=== PATIENT | male | born 2000 | race Caucasian/White ===

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

== ENCOUNTER 2020-08-15 11:48 | Emergency (ER) | payer OTHER ==
[2020-08-15 11:52] VITALS: TEMP 97.9
--- NOTE | 2020-08-15 12:11 | ED ---
General Adult HPI - General Chief complaint: Abdominal Pain Stated complaint: R Side Pain Time Seen by Provider: 08/15/20 12:01 Source: patient Mode of arrival: ambulatory Limitations: no limitations - History of Present Illness Initial comments: Dictation was produced using [employer] dictation software. please excuse any grammatical, word or spelling errors. This patient was cared for during a federal and state declared state of [facility] secondary to Covid 19 Chief Complaint: 19-year-old male with no significant past medical history presents with right-sided flank pain History of Present Illness: Is a 89-year-old male he woke up this morning with right-sided flank pain. Patient states that sharp and constant and located to his right flank right CVA area. Patient states it's sharp and severe periods worse with deep inspiration, coughing and bending. Patient has a history of kidney stones. Patient has not had a bladder movement yet today. He is unsure if he notices any abnormal urinary characteristics. No nausea vomiting or diarrhea. The ROS documented in this emergency department record has been reviewed and confirmed by me. Those systems with pertinent positive or negative responses have been documented in the HPI. All other systems are other negative and/or noncontributory. PHYSICAL EXAM: General Impression: Alert and oriented x3, mild distress secondary to pain HEENT: Normocephalic atraumatic, extra-ocular movements intact, pupils equal and reactive to light bilaterally, mucous membranes moist. Cardiovascular: Heart regular rate and rhythm Chest: Able to complete full sentences, no retractions, no tachypnea Abdomen: abdomen soft, non-tender, non-distended, no organomegaly Musculoskeletal: Pulses present and equal in all extremities, no peripheral edema Motor: no focal deficits noted Neurological: CN II-XII grossly intact, no focal motor or sensory deficits noted Skin: Intact with no visualized rashes Psych: Normal affect and mood ED course: 19-year-old male presents with chief complaint of right-sided flank pain upon waking up this morning. She symptoms seemed to be very musculoskeletal in nature. He does not have any abdominal tenderness or GI symptoms. Patient has stable vital signs. He denies any dyspnea. He is not tachycardic. He does have a component of pleurisy. Very unlikely clinically to be kidney stone versus pulmonary embolus Laboratory evaluation obtained. Mild leukocytosis of 11.1. Metabolic panel is unremarkable. Urinalysis shows 8 red blood cells and 6 white blood cells. Abdominal x-ray chest x-ray shows also a right-sided abdom and no acute processes seen on chest x-ray. En. Computed tomography scan of the abdomen and pelvis was obtained showing a 3 mm calculus within the distal right ureter with mild obstructive uropathy. Clinic al presentation consistent with kidney stones. Patient evaluated bedside found to be stable medical condition. Patient told to hydrate well. He is given outpatient follow-up with urology. - Related Data Home Medications Medication Instructions Recorded Confirmed Albuterol Nebulized [Ventolin 2.5 mg INHALATION RT-Q4H PRN 10/03/16 12/18/16 Nebulized] Beclomethasone Dipropionate [Qvar 1 puff INHALATION RT-BID 10/03/16 12/18/16 40 mcg] Dextroamphetamine/Amphetamine 20 mg PO BID 10/03/16 12/18/16 [Adderall] Loratadine [Claritin] 10 mg PO DAILY 10/03/16 12/18/16 Previous Rx's Medication Instructions Recorded Ibuprofen [Motrin] 600 mg PO Q6HR PRN #20 tab 12/18/16 Ketorolac [Toradol] 10 mg PO Q6HR PRN #12 tab 08/15/20 Allergies Allergy/AdvReac Type Severity Reaction Status Date / Time No Known Allergies Allergy Verified 08/15/20 11:52 Review of Systems ROS Statement: Those systems with pertinent positive or pertinent negative responses have been documented in the HPI. ROS Other: All systems not noted in ROS Statement are negative. Past Medical History Past Medical History: Asthma History of Any Multi-Drug Resistant Organisms: None Reported Past Surgical History: No Surgical Hx Reported Past Psychological History: ADD/ADHD Smoking Status: Current every day smoker Past Alcohol Use History: None Reported Past Drug Use History: Marijuana General Exam Limitations: no limitations Course Vital Signs 08/15/20 11:49 Temperature 97.9 F Pulse Rate 71 Respiratory 20 Rate Blood Pressure 157/84 O2 Sat by Pulse 99 Oximetry Medical Decision Making - Lab Data Result diagrams: 08/15/20 12:33 08/15/20 12:33 Lab Results 08/15/20 08/15/20 08/15/20 Range/Units 12:33 12:33 12:33 WBC 11.1 H (4.0-11.0) k/uL RBC 5.06 (4.30-5.90) m/uL Hgb 16.5 (13.0-17.5) gm/dL Hct 49.0 (39.0-53.0) % MCV 96.8 (80.0-100.0) fL MCH 32.5 (25.0-35.0) pg MCHC 33.6 (31.0-37.0) g/dL RDW 13.0 (11.5-15.5) % Plt Count 368 (150-450) k/uL MPV 6.7 Neutrophils % 66 % Lymphocytes % 24 % Monocytes % 6 % Eosinophils % 2 % Basophils % 1 % Neutrophils # 7.3 (1.3-7.7) k/uL Lymphocytes # 2.7 (1.0-4.8) k/uL Monocytes # 0.6 (0-1.0) k/uL Eosinophils # 0.2 (0-0.7) k/uL Basophils # 0.1 (0-0.2) k/uL Sodium 139 (137-145) mmol/L Potassium 4.3 (3.5-5.1) mmol/L Chloride 107 (98-107) mmol/L Carbon Dioxide 24 (22-30) mmol/L Anion Gap 8 mmol/L BUN 11 (9-20) mg/dL Creatinine 1.04 (0.66-1.25) mg/dL Est GFR (CKD-EPI)AfAm >90 (>60 ml/min/1.73 sqM) Est GFR (CKD-EPI)NonAf >90 (>60 ml/min/1.73 sqM) Glucose 119 H (74-99) mg/dL Calcium 9.8 (8.4-10.2) mg/dL Total Bilirubin 0.7 (0.2-1.3) mg/dL AST 22 (17-59) U/L ALT 30 (4-49) U/L Alkaline Phosphatase 96 (38-126) U/L Total Protein 7.6 (6.3-8.2) g/dL Albumin 4.6 (3.5-5.0) g/dL Lipase 47 (23-300) U/L Urine Color Yellow Urine Appearance Clear (Clear) Urine pH 5.5 (5.0-8.0) Ur Specific [place] 1.025 (1.001-1.035) Urine Protein Trace H (Negative) Urine Glucose (UA) Negative (Negative) Urine Ketones Negative (Negative) Urine Blood Small H (Negative) Urine Nitrite Negative (Negative) Urine Bilirubin Negative (Negative) Urine Urobilinogen <2.0 (<2.0) mg/dL Ur Leukocyte Esterase Small H (Negative) Urine RBC 8 H (0-5) /hpf Urine WBC 6 H (0-5) /hpf Ur Squamous Epith Cells <1 (0-4) /hpf Urine Mucus Few H (None) /hpf Disposition Clinical Impression: Kidney stone Disposition: HOME SELF-CARE Condition: Good Instructions (If sedation given, give patient instructions): Kidney Stones (ED) Prescriptions: Ketorolac [Toradol] 10 mg PO Q6HR PRN #12 tab PRN Reason: Pain Is patient prescribed a controlled substance at d/c from ED?: No Referrals: Carlos Land MD [STAFF PHYSICIAN] - 1-2 days Time of Disposition: 13:51
[2020-08-15] MEDS ORDERED: KETOROLAC 15 MG/ML 1 ML VIAL IVP STA (12:39)
[2020-08-15] MEDS ORDERED: LIDOCAINE 5% PATCH TOPICAL STA (12:39)
[2020-08-15 12:48] LABS: Basophils # (A) 0.1 k/uL (0-0.2); Basophils % (A) 1 %; Eosinophils # (A) 0.2 k/uL (0-0.7); Eosinophils % (A) 2 %; HGB 16.5 gm/dL (13.0-17.5); Lymphocytes # (A) 2.7 k/uL (1.0-4.8); Lymphocytes % (A) 24 %; MCH 32.5 pg (25.0-35.0); MCHC 33.6 g/dL (31.0-37.0); MCV 96.8 fL (80.0-100.0); Mean Platelet Volume 6.7; Monocytes # (A) 0.6 k/uL (0-1.0); Monocytes % (A) 6 %; Neutrophils # (A) 7.3 k/uL (1.3-7.7); Neutrophils % (A) 66 %; Platelet Count 368 k/uL (150-450); RBC 5.06 m/uL (4.30-5.90); WBC 11.1 k/uL (4.0-11.0)
[2020-08-15 12:55] LABS: ALT 30 U/L (4-49); AST 22 U/L (17-59); African American GFR (CKD) >90 (>60 ml/min/1.73 sqM); Albumin 4.6 g/dL (3.5-5.0); Alkaline Phosphatase 96 U/L (38-126); Anion Gap 8 mmol/L; Blood Urea Nitrogen 11 mg/dL (9-20); Calcium 9.8 mg/dL (8.4-10.2); Carbon Dioxide 24 mmol/L (22-30); Chloride 107 mmol/L (98-107); Glucose 119 mg/dL (74-99); Lipase 47 U/L (23-300); Non-African American GFR(CKD) >90 (>60 ml/min/1.73 sqM); Potassium 4.3 mmol/L (3.5-5.1); Sodium 139 mmol/L (137-145); Total Bilirubin 0.7 mg/dL (0.2-1.3); Total Protein 7.6 g/dL (6.3-8.2)
--- NOTE | 2020-08-15 12:57 | XR ---
EXAMINATION TYPE: XR chest 2V DATE OF EXAM: 08/15/2020 COMPARISON: 06/09/2016 HISTORY: 19-year-old male with right-sided flank pain TECHNIQUE: PA and lateral views FINDINGS: The cardiomediastinal silhouette, aorta, and pulmonary vasculature are within normal limits. Mild int erstitial prominence is unchanged. No consolidation or pleural effusion. IMPRESSION: Chronic changes possible bronchitis or chronic asthma. No acute cardiopulmonary process.
--- NOTE | 2020-08-15 12:57 | XR ---
EXAMINATION TYPE: XR abdomen 1V DATE OF EXAM: 08/15/2020 Comparison: None Clinical History: 19-year-old male with right flank pain Findings: No evidence for free intraperitoneal air. No dilated small bowel or differential air-fluid levels. Mild stool within the right-sided the abdomen. No suspicious calcifications are radiographically apparent. Impression: No evidence for free air or bowel obstruction. Only mild stool in the right side of the abdomen. No s uspicious calcifications are radiographically apparent.
[2020-08-15 13:03] LABS: Appearance,Urine Clear (Clear); Bilirubin,Urine Negative (Negative); Blood,Urine Small (Negative); Color,Urine Yellow; Glucose,Urine (UA) Negative (Negative); Ketones,Urine Negative (Negative); Leukocyte Esterase,Urine Small (Negative); Mucus,Urine Few /hpf; Nitrite,Urine Negative (Negative); PH, Urine 5.5 (5.0-8.0); Protein,Urine Trace (Negative); RBC,Urine 8 /hpf (0-5); Specific Gravity,Urine 1.025 (1.001-1.035); Squamous Epithelial Cell,Urine <1 /hpf (0-4); Urobilinogen,Urine <2.0 mg/dL (<2.0); WBC,Urine 6 /hpf (0-5)
--- NOTE | 2020-08-15 13:40 | CT ---
EXAMINATION TYPE: CT abdomen pelvis wo con DATE OF EXAM: 08/15/2020 COMPARISON: None HISTORY: 19-year-old male with right flank pain CT DLP: 814 mGycm. Automated exposure control for dose reduction was used. TECHNIQUE: Contiguous axial scanning of the abdomen and pelvis without IV contrast. Coronal and sagit anna reconstructions performed. FINDINGS: Heart normal size without pericardial effusion. Lung bases clear without pleural effusion. Noncontrast appearance of the liver, gallbladder, adrenal glands, spleen with anterior splenule, left kidney, and pancreas show no gross abnormality. There is mild right-sided hydronephrosis with a 3 mm calculus at the distal right ureter just proxima l to the UVJ. No dilated small bowel, free fluid, or free air. No mesenteric or retroperitoneal lymphadenopathy. Normal appendix. Mild stool within the right side of the colon and within the mid to distal sigmoid. No pericolonic inflammatory change. Bladder is collapsed. No abnormal fluid collection the pelvis or pelvic lymphadenopathy. Bones: No osseous destructive process. Mild degenerative disc disease L5-S1. Scattered endplates as w ell as nodes lower thoracic spine. IMPRESSION: A 3 mm calculus within the distal right ureter with mild obstructive uropathy.
[2020-08-15] MEDS ORDERED: ACET/COD 300 MG/30 MG STARTER PACK 6 TAB BTL PO STA (13:51)
[2020-08-15 14:01] VITALS: BP 136/88; PULSE 78; RESP 18
== END 2020-08-15 14:01 | disposition home or self-care (01) ==
LOC: EC 11:48
DX: N20.2 Calculus of kidney with calculus of ureter (principal); N13.9 Obstructive and reflux uropathy, unspecified; R09.1 Pleurisy; D72.829 Elevated white blood cell count, unspecified; J45.909 Unspecified asthma, uncomplicated; F90.9 Attention-deficit hyperactivity disorder, unspecified type; F17.200 Nicotine dependence, unspecified, uncomplicated; Z79.51 Long term (current) use of inhaled steroids; Z79.899 Other long term (current) drug therapy; Z87.442 Personal history of urinary calculi
CPT/HCPCS: 36415; 80053; 83690; 85025; 81001; 71046; 74018; 74176; 99285; 96374; J1885